=== PATIENT | male | born 1995 | race Caucasian/White ===

== ENCOUNTER 2021-10-31 20:28 | Emergency (ER) | payer BC, OTHER ==
[2021-10-31 20:55] VITALS: BP 112/73; PULSE 80; RESP 20; TEMP 98.4; BMI 20.7
[2021-10-31] MEDS ORDERED: ACETAMINOPHEN 500 MG TABLET (FP) PO ONE (22:00)
[2021-10-31] MEDS ORDERED: ACETAMINOPHEN 500 MG TABLET (FP) ONE (22:33)
== END 2021-10-31 23:42 | disposition home or self-care (01) ==
LOC: JER 20:28
DX: M79.10 Myalgia, unspecified site (principal)
CPT/HCPCS: 76856-TC; 76870-TC; 99284-25